=== PATIENT | female | born 1995 | race Caucasian/White ===

== ENCOUNTER 2019-01-17 10:49 | Emergency (ER) | payer MEDICAID ==
[2019-01-17] MEDS ORDERED: 0.9 % SODIUM CHLORIDE 1,000 ML BAG IV ONE (11:16)
--- NOTE | 2019-01-17 11:22 | Emergency Department Record ---
History of Present Illness - General Chief complaint: Cold Stated complaint: BLD PRESSURE/PREG 24W Time Seen by Provider: 01/17/19 11:07 Source: Patient Mode of Arrival: Ambulatory Limitations: No limitations - History of Present Illness Initial comments: pt c/o of sinus infxn that is not getting better. she has green rhinitis and cough. she feels shaky. pt is 24 wks preg. she has no leg pain MD complaint: Other Onset/Timin -: Week(s) Severity: Mild Consistency: Constant Improves with: Other medication Worsens with: Movement Associated Symptoms: Cough, Rhinorrhea - Related Data Home Medications Medication Instructions Recorded Confirmed Last Taken Promethazine HCl [Phenergan] 25 mg PO ASDIR 01/17/19 01/17/19 01/16/19 Previous Rx's Medication Instructions Recorded Amoxicillin 500 mg PO BID #14 capsule 01/17/19 Allergies Allergy/AdvReac Type Severity Reaction Status Date / Time Sulfa (Sulfonamide Allergy RASH Verified 01/17/19 10:58 Antibiotics) Travel Screening - Travel/Exposure Within Last 30 Days Have you traveled within the last 30 days?: No - Travel/Exposure Within Last Year Have you traveled outside the [place] in the last year?: No - Additonal Travel Details Have you been exposed to anyone with a communicable illness?: No - Travel Symptoms Symptom Screening: None Review of Systems Reviewed: No additional complaints except as noted below Constitutional: Reports: As per HPI. Denies: Chills, Fever, Malaise, Night sweats, Weakness, Weight change Eyes: Reports: As per HPI. Denies: Eye discharge, Eye pain, Photophobia, Vision change ENT: Reports: As per HPI. Denies: Congestion, Dental pain, Ear pain, Epistaxis , Hearing loss, Throat pain Respiratory: Reports: As per HPI. Denies: Cough, Dyspnea, Hemoptysis, Stridor, Wheezes Cardiovascular: Reports: As per HPI. Denies: Arrhythmia, Chest pain, Dyspnea on exertion, Edema, Murmurs, Orthopnea, Palpitations, Paroxysmal nocturnal dyspnea, Rheumatic Fever, Syncope Endocrine: Reports: As per HPI. Denies: Fatigue, Heat or cold intolerance, Polydipsia, Polyuria Gastrointestinal: Reports: As per HPI. Denies: Abdominal pain, Constipation, Diarrhea, Hematemesis, Hematochezia, Melena, Nausea, Vomiting Genitourinary: Reports: As per HPI. Denies: Abnormal menses, Discharge, Dyspareunia, Dysuria, Frequency, Hematuria, Incontinence, Retention, Urgency Musculoskeletal: Reports: As per HPI. Denies: Arthralgia, Back pain, Gout, Joint swelling, Myalgia, Neck pain Skin: Reports: As per HPI. Denies: Bruising, Change in color, Change in hair/ nails, Lesions, Pruritus, Rash Neurological: Reports: As per HPI. Denies: Abnormal gait, Confusion, Headache, Numbness, Paresthesias, Seizure, Tingling, Tremors, Vertigo, Weakness Psychiatric: Reports: As per HPI. Denies: Anxiety, Auditory hallucinations, Depression, Homicidal thoughts, Suicidal thoughts, Visual hallucinations Hematological/Lymphatic: Reports: As per HPI. Denies: Anemia, Blood Clots, Easy bleeding, Easy bruising, Swollen glands Past Medical History - SOCIAL HISTORY Smoking Status: Current every day smoker Alcohol Use: None Drug Use: None - RESPIRATORY Hx Respiratory Disorders: No - CARDIOVASCULAR Hx Cardio Disorders: No - NEURO Hx Neuro Disorders: No - GI Hx GI Disorders: No - Hx Genitourinary Disorders: No - ENDOCRINE Hx Endocrine Disorders: No - MUSCULOSKELETAL Hx Musculoskeletal Disorders: No - PSYCH Hx Psych Problems: No - HEMATOLOGY/ONCOLOGY Hx Hematology/Oncology Disorders: No Family Medical History Any Significant Family History?: Yes Family Hx Comment (NOT TO BE USED IN PLACE OF ITEMS BELOW): Mom has Lupus Physical Exam - General General Appearance: Alert, Oriented x3, Cooperative, No acute distress - Head Head exam: Normal inspection - Eye Eye exam: Normal appearance, PERRL, EOMI Pupils: Normal accommodation - ENT ENT exam: Normal exam, Mucous membranes moist, Normal external ear exam, Normal orophraynx, TM's normal bilaterally Ear exam: Normal external inspection. negative: External canal tenderness Nasal Exam: Normal inspection. negative: Discharge, Sinus tenderness Mouth exam: Normal external inspection, Tongue normal Teeth exam: Normal inspection. negative: Dental caries Throat exam: Normal inspection. negative: Tonsillar erythema, Tonsillar exudate - Neck Neck exam: Normal inspection, Full ROM. negative: Tenderness - Respiratory Respiratory exam: Normal lung sounds bilaterally. negative: Respiratory distress - Cardiovascular Cardiovascular Exam: Regular rate, Normal rhythm, Normal heart sounds - GI/Abdominal GI/Abdominal exam: Soft, Normal bowel sounds. negative: Tenderness - Rectal Rectal exam: Deferred - exam: Deferred - Extremities Extremities exam: Normal inspection, Full ROM, Normal capillary refill. negative: Tenderness - Back Back exam: Reports: Normal inspection, Full ROM. Denies: Muscle spasm, Rash noted, Tenderness - Neurological Neurological exam: Alert, CN II-XII intact, Normal gait, Oriented X3 - Psychiatric Psychiatric exam: Normal affect, Normal mood - Skin Skin exam: Dry, Intact, Normal color, Warm Course Vital Signs 01/17/19 10:59 Temperature 98 F Pulse Rate 75 Respiratory 16 Rate Blood Pressure 101/74 Pulse Ox 99 - Reevaluation(s) Reevaluation #1: 01/17/19 12:47 pt feels much better Medical Decision Making - Lab Data Result diagrams: 01/17/19 11:40 01/17/19 11:40 Disposition Disposition: Discharge Clinical Impression: Sinusitis Qualifiers: Sinusitis location: unspecified location Chronicity: acute Recurrence: non- recurrent Qualified Code(s): J01.90 - Acute sinusitis, unspecified Disposition: Home, Self-Care Condition: (1) Good Instructions: Sinusitis (ED) Additional Instructions: follow up with family doctor and ob. return sooner if worse. Prescriptions: Amoxicillin 500 mg PO BID #14 capsule Forms: Patient Portal Access Quality - Quality Measures Quality Measures: N/A - Blood Pressure Screening Does Patient Have Any of the Following: No Blood Pressure Classification: Normal BP Reading Systolic Measurement: 101 Diastolic Measurement: 74 Screening for High Blood Pressure: < Normal BP, F/U Not Required > [G8783]
[2019-01-17 11:55] LABS: HEMATOCRIT 37.9 % (35.0-47.0); HEMOGLOBIN 12.9 gm/dl (11.6-16.0); MEAN PLATELET VOLUME 9.5 fl (7.4-10.4); PLATELET COUNT 277 K/uL (130-400); RED BLOOD COUNT 4.03 M/uL (3.80-5.40); RED CELL DISTRIBUTION WIDTH 12.9 % (11.5-14.5); WHITE BLOOD COUNT W/O DIFF 12.9 K/uL (4.2-12.2)
[2019-01-17 12:12] LABS: URINE APPEARANCE CLEAR; URINE BILIRUBIN NEGATIVE (NEGATIVE); URINE BLOOD NEGATIVE (NEGATIVE); URINE COLOR YELLOW; URINE GLUCOSE (UA) NEGATIVE (NEGATIVE); URINE KETONE NEGATIVE (NEGATIVE); URINE LEUKOCYTE ESTERASE NEGATIVE (NEGATIVE); URINE NITRITE NEGATIVE (NEGATIVE); URINE PROTEIN NEGATIVE (NEGATIVE); URINE UROBILINOGEN 0.2 E.U./dL (0.20 - 1.00)
[2019-01-17 12:31] LABS: BLOOD UREA NITROGEN 7 mg/dL (6-20); CREATININE 0.4 mg/dL (0.5-0.9); EST GLOMERULAR FILTRATION RATE > 60 mL/min
[2019-01-17 12:32] LABS: TOTAL PROTEIN 7.3 g/dL (6.6-8.7)
[2019-01-17 12:34] LABS: GLUCOSE,RANDOM 80 mg/dL (74-109)
[2019-01-17 12:36] LABS: ALT/SGPT 11 U/L (<33); AST/SGOT 17 U/L (10.0-35.0)
[2019-01-17 12:37] LABS: ALB/GLOB RATIO 1.4 (1.1-1.8); ALBUMIN 4.2 g/dL (4.0-5.0); ALKALINE PHOSPHATASE 89 U/L (35-104)
== END 2019-01-17 13:18 | disposition home or self-care (01) ==
LOC: MERGE 10:49 → ER 10:49
DX: J01.90 Acute sinusitis, unspecified (principal); R05 Cough; F17.210 Nicotine dependence, cigarettes, uncomplicated; Z33.1 Pregnant state, incidental
CPT/HCPCS: 80053; 81003; 85027; 99283

== ENCOUNTER 2019-01-19 16:15 | Emergency (ER) | payer MEDICAID ==
--- NOTE | 2019-01-19 17:32 | Emergency Department Record ---
History of Present Illness - General Chief Complaint: Chest Pain Stated Complaint: CHEST PAIN Time Seen by Provider: 01/19/19 17:26 Source: Patient Mode of Arrival: Ambulatory Limitations: No limitations - History of Present Illness Initial Comments: 23 yo female presents to ED for evaluation of abdominal pain, loose stools, and left lower chest pain symptoms that began 4 days ago. Patient denies fevers, chills, or recent illness. Patient denies complications of her current , denies health problems at her baseline. Patient reports that her OB is Dr. Carr through [facility] MD Complaint: Chest pain, Other (Abdominal pain) Onset/Timin -: Days(s) Pain Location: Left chest Severity scale (1-10): 5 Quality: Dull Consistency: Intermittent Worsens With: Exertion - Related Data Previous Rx's Medication Instructions Recorded Amoxicillin 500 mg PO BID #14 capsule 01/17/19 Allergies Allergy/AdvReac Type Severity Reaction Status Date / Time Sulfa (Sulfonamide Allergy RASH Verified 01/19/19 16:57 Antibiotics) Travel Screening - Travel/Exposure Within Last 30 Days Have you traveled within the last 30 days?: No Review of Systems Constitutional: Denies: Chills, Fever, Malaise, Night sweats Eyes: Denies: Eye discharge, Eye pain ENT: Denies: Congestion, Ear pain, Epistaxis Respiratory: Denies: Cough, Dyspnea Cardiovascular: Reports: Chest pain. Denies: Dyspnea on exertion Endocrine: Denies: Fatigue, Heat or cold intolerance Gastrointestinal: Reports: Abdominal pain, Diarrhea. Denies: Nausea, Vomiting Genitourinary: Denies: Incontinence, Retention Musculoskeletal: Denies: Arthralgia, Back pain Skin: Denies: Bruising, Change in color Neurological: Reports: Vertigo. Denies: Abnormal gait, Confusion, Headache Psychiatric: Denies: Anxiety Hematological/Lymphatic: Denies: Anemia, Blood Clots Past Medical History - SOCIAL HISTORY Smoking Status: Current every day smoker Alcohol Use: None Drug Use: None - RESPIRATORY Hx Respiratory Disorders: No - CARDIOVASCULAR Hx Cardio Disorders: No - NEURO Hx Neuro Disorders: No - GI Hx GI Disorders: No - Hx Genitourinary Disorders: No - ENDOCRINE Hx Endocrine Disorders: No - MUSCULOSKELETAL Hx Musculoskeletal Disorders: No - PSYCH Hx Psych Problems: No - HEMATOLOGY/ONCOLOGY Hx Hematology/Oncology Disorders: No Family Medical History Any Significant Family History?: No Family Hx Comment (NOT TO BE USED IN PLACE OF ITEMS BELOW): Mom has Lupus Physical Exam - General General Appearance: Alert, Oriented x3, Cooperative, Mild distress Limitations: No limitations - Head Head exam: Atraumatic, Normocephalic, Normal inspection Head exam detail: negative: Abrasion, Contusion, Galloway's sign, General tenderness, Hematoma, Laceration - Eye Eye exam: Normal appearance. negative: Conjunctival injection, Periorbital swelling, Periorbital tenderness, Scleral icterus - ENT Ear exam: negative: Auricular hematoma, Auricular trauma Nasal Exam: negative: Active bleeding, Discharge, Dried blood, Sinus tenderness Mouth exam: negative: Drooling, Laceration, Tongue elevation - Neck Neck exam: Normal inspection. negative: Meningismus, Tenderness - Respiratory Respiratory exam: Normal lung sounds bilaterally. negative: Rhonchi, Wheezes - Cardiovascular Cardiovascular Exam: Regular rate, Normal rhythm, Normal heart sounds - GI/Abdominal GI/Abdominal exam: Soft. negative: Rebound, Rigid, Tenderness - Rectal Rectal exam: Deferred - exam: Deferred - Extremities Extremities exam: Normal inspection. negative: Pedal edema, Tenderness - Back Back exam: Denies: CVA tenderness (R), CVA tenderness (L) - Neurological Neurological exam: Alert, Normal gait, Oriented X3 - Psychiatric Psychiatric exam: Normal affect, Normal mood - Skin Skin exam: Normal color. negative: Abrasion Type of lesion: negative: abrasion Course Vital Signs 01/19/19 16:54 Temperature 97.9 F Pulse Rate 86 Respiratory 18 Rate Blood Pressure 106/71 Pulse Ox 98 - Reevaluation(s) Reevaluation #1: 01/19/19 17:30 EKG: NSR 77 Normal axis, normal intervals No acute ST-T wave changes are present. Reevaluation #2: 01/19/19 17:36 Case was discussed with Dr. Cuenca, will accept transfer at this time for OB/ US evaluation given her abdominal cramping symptoms. Disposition Disposition: Transfer Clinical Impression: Abdominal pain affecting Disposition: Home, Self-Care Transfer To: [facility] Reason For Transfer: US evaluation Accepting Physician: Joellen Time Discussed w/Accepting Physician: 17:37 Condition: (2) Stable Instructions: Abdominal Pain (ED) Forms: Patient Portal Access Time of Disposition: 17:37 Quality - Quality Measures Quality Measures: N/A, (14-50yr) - : US Determination Quality Measure: Measure #254: US Determination of Location ICD10 Codes Entered: Yes US Determination of Location: Trans-Abdominal or Trans-Vaginal US NOT Performed w/Reasons [G8807] Reason for No US: Documented Intrauterine - : Rhogam Quality Measure: Measure #255: Rhogam for Rh-Negative Women Rhogam for Rh-Negative Women at Risk: Rh-immunoglobulin NOT Ordered w/ Reason [H5410] Reason for not prescribing Rhogam: Other - Blood Pressure Screening Does Patient Have Any of the Following: No Blood Pressure Classification: Normal BP Reading Systolic Measurement: 106 Diastolic Measurement: 71 Screening for High Blood Pressure: < Normal BP, F/U Not Required > [G7583]
== END 2019-01-19 18:02 | disposition home or self-care (01) ==
LOC: ER 16:15 → MERGE 16:15 → ER 18:02
DX: O26.899 Other specified pregnancy related conditions, unspecified trimester (principal); O99.330 Smoking (tobacco) complicating pregnancy, unspecified trimester; R10.9 Unspecified abdominal pain; R07.9 Chest pain, unspecified; R11.0 Nausea; R19.7 Diarrhea, unspecified; R06.02 Shortness of breath; Z3A.00 Weeks of gestation of pregnancy not specified; F17.210 Nicotine dependence, cigarettes, uncomplicated
CPT/HCPCS: 93005; 93010; 99284

== ENCOUNTER 2019-01-24 15:31 | Emergency (ER) | payer MEDICAID ==
--- NOTE | 2019-01-24 15:59 | Emergency Department Record ---
History of Present Illness - General Chief complaint: Nausea, Vomiting, Diarrhea Stated complaint: VOMITING AND DIARRHEA Time Seen by Provider: 01/24/19 15:51 Source: Patient, Family Mode of Arrival: Ambulatory Limitations: No limitations - History of Present Illness Initial comments: 23 yo female presents at 24 weeks . She is concerned about her hydration status. She has nausea with vomiting the last few nights with some diarrhea. She is not having abdominal pain. No vaginal fluid leakage or bleeding. She is feeling the baby move. Her last diarrhea was during the night and her last emesis was this morning. No complications with her . This is her second . No vaginal discharge. 01/22/19 US preformed at [facility] [place]. SLIUP. HR 126. No previa. US dates 23w 1 day. complaint: Diarrhea, Nausea, Vomiting -: Days(s) Description of Vomiting: Watery Description of Diarrhea: Water Radiation: None Severity: Mild Quality: Other (No abdominal pain) Consistency: Intermittent Improves with: None Worsens with: Eating Context: Other Associated Symptoms: Cough - Related Data Home Medications Medication Instructions Recorded Confirmed Last Taken Albuterol Sulfate [Proair Hfa] 1 puff IH ASDIR 01/24/19 01/24/19 Unknown Azithromycin 250 mg PO DAILY 01/24/19 01/24/19 Unknown Allergies Allergy/AdvReac Type Severity Reaction Status Date / Time Sulfa (Sulfonamide Allergy RASH Verified 01/19/19 16:57 Antibiotics) Review of Systems Constitutional: Denies: Chills, Fever, Malaise, Weakness Eyes: Denies: Eye discharge ENT: Reports: Congestion. Denies: Ear pain, Throat pain Respiratory: Reports: Cough Cardiovascular: Denies: Chest pain, Palpitations, Syncope Endocrine: Denies: Fatigue Gastrointestinal: Reports: Diarrhea, Nausea, Vomiting. Denies: Abdominal pain, Constipation, Hematemesis, Hematochezia, Melena Genitourinary: Denies: Dysuria, Urgency Musculoskeletal: Denies: Arthralgia, Back pain, Myalgia Skin: Denies: Bruising, Change in color, Rash Neurological: Denies: Headache Psychiatric: Denies: Anxiety Hematological/Lymphatic: Denies: Easy bleeding, Easy bruising Past Medical History - SOCIAL HISTORY Smoking Status: Current every day smoker Drug Use: None - RESPIRATORY Hx Respiratory Disorders: No - CARDIOVASCULAR Hx Cardio Disorders: No - NEURO Hx Neuro Disorders: No - GI Hx GI Disorders: No - Hx Genitourinary Disorders: No - ENDOCRINE Hx Endocrine Disorders: No - MUSCULOSKELETAL Hx Musculoskeletal Disorders: No - PSYCH Hx Psych Problems: No - HEMATOLOGY/ONCOLOGY Hx Hematology/Oncology Disorders: No Family Medical History Family Hx Comment (NOT TO BE USED IN PLACE OF ITEMS BELOW): Mom has Lupus Physical Exam - General General Appearance: Alert, Oriented x3, Cooperative, No acute distress Limitations: No limitations - Head Head exam: Atraumatic, Normal inspection - Eye Eye exam: Normal appearance. negative: Conjunctival injection, Scleral icterus - ENT ENT exam: Normal exam Ear exam: Normal external inspection Nasal Exam: Normal inspection Mouth exam: Normal external inspection - Neck Neck exam: Normal inspection - Respiratory Respiratory exam: Normal lung sounds bilaterally. negative: Respiratory distress - Cardiovascular Cardiovascular Exam: Regular rate, Normal rhythm, Normal heart sounds - GI/Abdominal GI/Abdominal exam: Soft. negative: Distended, Guarding, Rebound, Rigid, Tenderness - Rectal Rectal exam: Deferred - exam: Deferred - Extremities Extremities exam: Normal inspection. negative: Tenderness - Back Back exam: Denies: CVA tenderness (R), CVA tenderness (L) - Neurological Neurological exam: Alert, Oriented X3 - Psychiatric Psychiatric exam: Normal affect, Normal mood - Skin Skin exam: Dry, Intact, Normal color, Warm Course - Reevaluation(s) Reevaluation #1: The patient is well appearing, no abdominal pain, no vaginal fluid leak, bleeding or discharge. She is feeling regular movement She is not acutely ill or vomiting She will be hydrated to address her concerns I did inform her at this stage in she has OB triage at [facility] as an option that is recommended to be seen as well. 01/24/19 16:10 01/24/19 16:32 The UA is negative for infection. Spec Bradley is normal. No protein. 01/24/19 17:00 Bedside US was used to identify the baby. HR 132. Vigorous movement. The patient is feeling better with IFV. Medical Decision Making - Lab Data Result diagrams: 01/24/19 16:10 01/24/19 16:10 Disposition Disposition: Discharge Clinical Impression: Vomiting and diarrhea, Dehydration Disposition: Home, Self-Care Condition: (1) Good Instructions: Acute Nausea and Vomiting (ED) Additional Instructions: Follow up with your doctor first of the week If you have any concerns with your , nausea or vomiting you may be seen at OB Triage at [facility] given this is your 24th week of Forms: Patient Portal Access Quality - Quality Measures Quality Measures: N/A - Blood Pressure Screening Does Patient Have Any of the Following: No Blood Pressure Classification: Normal BP Reading Systolic Measurement: 102 Diastolic Measurement: 69 Screening for High Blood Pressure: < Normal BP, F/U Not Required > [G8783]
[2019-01-24] MEDS ORDERED: 0.9 % SODIUM CHLORIDE 1,000 ML BAG IV ONE ×2 (16:04→16:59)
[2019-01-24 16:16] LABS: HEMOGLOBIN 11.8 gm/dl (11.6-16.0); MEAN CELL VOLUME 93.6 fl (81-97); MEAN CORPUSCULAR HGB CONC 33.7 g/dl (32-36); MEAN PLATELET VOLUME 9.1 fl (7.4-10.4); PLATELET COUNT 251 K/uL (130-400); RED BLOOD COUNT 3.74 M/uL (3.80-5.40); RED CELL DISTRIBUTION WIDTH 12.8 % (11.5-14.5); URINE APPEARANCE CLEAR; URINE BILIRUBIN NEGATIVE (NEGATIVE); URINE BLOOD NEGATIVE (NEGATIVE); URINE COLOR YELLOW; URINE GLUCOSE (UA) NEGATIVE (NEGATIVE); URINE KETONE NEGATIVE (NEGATIVE); URINE LEUKOCYTE ESTERASE NEGATIVE (NEGATIVE); URINE NITRITE NEGATIVE (NEGATIVE); URINE PROTEIN NEGATIVE (NEGATIVE); URINE UROBILINOGEN 0.2 E.U./dL (0.20 - 1.00); WHITE BLOOD COUNT W/O DIFF 14.4 K/uL (4.2-12.2)
[2019-01-24 16:20] LABS: MEAN CORPUSCULAR HEMOGLOBIN 31.5 pg (27-33)
[2019-01-24 16:25] LABS: PLATELET ESTIMATE NORMAL (NORMAL)
[2019-01-24 16:32] LABS: BLOOD UREA NITROGEN 7 mg/dL (6-20); CREATININE 0.4 mg/dL (0.5-0.9); EST GLOMERULAR FILTRATION RATE > 60 mL/min
[2019-01-24 16:33] LABS: TOTAL PROTEIN 6.6 g/dL (6.6-8.7)
[2019-01-24 16:35] LABS: GLUCOSE,RANDOM 111 mg/dL (74-109)
[2019-01-24 16:37] LABS: ALB/GLOB RATIO 1.4 (1.1-1.8); ALBUMIN 3.8 g/dL (4.0-5.0); ALT/SGPT 10 U/L (<33); AST/SGOT 14 U/L (10.0-35.0)
[2019-01-24 16:38] LABS: ALKALINE PHOSPHATASE 91 U/L (35-104)
[2019-01-24] MEDS ORDERED: POTASSIUM CHLORIDE 20 MEQ TABLET PO ONE (17:00)
== END 2019-01-24 18:02 | disposition home or self-care (01) ==
LOC: ER 15:31
DX: O26.892 Other specified pregnancy related conditions, second trimester (principal); O99.332 Smoking (tobacco) complicating pregnancy, second trimester; E86.0 Dehydration; R11.2 Nausea with vomiting, unspecified; R19.7 Diarrhea, unspecified; R05 Cough; F17.210 Nicotine dependence, cigarettes, uncomplicated; Z3A.23 23 weeks gestation of pregnancy
CPT/HCPCS: 80053; 81003; 85027; 96360; 96361; 99284; J7030

== ENCOUNTER 2019-02-03 10:47 | Emergency (ER) | payer MEDICAID ==
[2019-02-03] MEDS ORDERED: 0.9 % SODIUM CHLORIDE 1,000 ML BAG IV ONE (11:22)
[2019-02-03 11:40] LABS: HEMATOCRIT 33.4 % (35.0-47.0); HEMOGLOBIN 11.4 gm/dl (11.6-16.0); MEAN CELL VOLUME 91.8 fl (81-97); MEAN CORPUSCULAR HEMOGLOBIN 31.3 pg (27-33); MEAN CORPUSCULAR HGB CONC 34.1 g/dl (32-36); MEAN PLATELET VOLUME 8.8 fl (7.4-10.4); PLATELET COUNT 312 K/uL (130-400); RED BLOOD COUNT 3.64 M/uL (3.80-5.40); RED CELL DISTRIBUTION WIDTH 12.6 % (11.5-14.5); URINE APPEARANCE CLEAR; URINE BILIRUBIN NEGATIVE (NEGATIVE); URINE BLOOD NEGATIVE (NEGATIVE); URINE COLOR YELLOW; URINE GLUCOSE (UA) NEGATIVE (NEGATIVE); URINE KETONE NEGATIVE (NEGATIVE); URINE LEUKOCYTE ESTERASE NEGATIVE (NEGATIVE); URINE NITRITE NEGATIVE (NEGATIVE); URINE PROTEIN NEGATIVE (NEGATIVE); URINE UROBILINOGEN 0.2 E.U./dL (0.20 - 1.00); WHITE BLOOD COUNT W/O DIFF 12.6 K/uL (4.2-12.2)
[2019-02-03 11:54] LABS: BILIRUBIN,TOTAL < 0.20 mg/dL (0.2-1.0); BLOOD UREA NITROGEN 5 mg/dL (6-20); CREATININE 0.4 mg/dL (0.5-0.9); EST GLOMERULAR FILTRATION RATE > 60 mL/min
[2019-02-03 11:55] LABS: TOTAL PROTEIN 6.1 g/dL (6.6-8.7)
[2019-02-03 11:57] LABS: GLUCOSE,RANDOM 86 mg/dL (74-109)
[2019-02-03 11:59] LABS: ALT/SGPT 13 U/L (<33); AST/SGOT 16 U/L (10.0-35.0)
[2019-02-03 12:00] LABS: ALB/GLOB RATIO 1.5 (1.1-1.8); ALBUMIN 3.7 g/dL (4.0-5.0); ALKALINE PHOSPHATASE 88 U/L (35-104)
--- NOTE | 2019-02-03 12:46 | Emergency Department Record ---
History of Present Illness - General Chief complaint: Nausea, Vomiting, Diarrhea Stated complaint: DEHYDRATION Time Seen by Provider: 02/03/19 11:07 Source: Patient Mode of Arrival: Ambulatory Limitations: No limitations - History of Present Illness Initial comments: pt is here she states for dehydration. she has had bronchitis and is taking zithromax and has had a lot of diarrhea. she is 25wks . she is having no cramping , no ap. she feels movement MD complaint: Diarrhea, Nausea, Vomiting Onset/Timin -: Days(s) Severity scale (1-10): 3 Quality: Aching Associated Symptoms: Nausea/vomiting - Related Data Home Medications Medication Instructions Recorded Confirmed Last Taken No122/Iron/Folic Acid 1 each PO DAILY 02/03/19 02/03/19 1 Day Ago [ Multi Tablet] ~02/02/19 Allergies Allergy/AdvReac Type Severity Reaction Status Date / Time Sulfa (Sulfonamide Allergy RASH Verified 02/03/19 11:04 Antibiotics) cefuroxime AdvReac VOMITING Verified 02/03/19 11:06 Travel Screening - Travel/Exposure Within Last 30 Days Have you traveled within the last 30 days?: No - Travel/Exposure Within Last Year Have you traveled outside the [place] in the last year?: No - Additonal Travel Details Have you been exposed to anyone with a communicable illness?: No - Travel Symptoms Symptom Screening: None Review of Systems Reviewed: No additional complaints except as noted below Constitutional: Reports: As per HPI. Denies: Chills, Fever, Malaise, Night sweats, Weakness, Weight change Eyes: Reports: As per HPI. Denies: Eye discharge, Eye pain, Photophobia, Vision change ENT: Reports: As per HPI. Denies: Congestion, Dental pain, Ear pain, Epistaxis , Hearing loss, Throat pain Respiratory: Reports: As per HPI. Denies: Cough, Dyspnea, Hemoptysis, Stridor, Wheezes Cardiovascular: Reports: As per HPI. Denies: Arrhythmia, Chest pain, Dyspnea on exertion, Edema, Murmurs, Orthopnea, Palpitations, Paroxysmal nocturnal dyspnea, Rheumatic Fever, Syncope Endocrine: Reports: As per HPI. Denies: Fatigue, Heat or cold intolerance, Polydipsia, Polyuria Gastrointestinal: Reports: As per HPI, Diarrhea, Nausea, Vomiting. Denies: Abdominal pain, Constipation, Hematemesis, Hematochezia, Melena Genitourinary: Reports: As per HPI. Denies: Abnormal menses, Discharge, Dyspareunia, Dysuria, Frequency, Hematuria, Incontinence, Retention, Urgency Musculoskeletal: Reports: As per HPI. Denies: Arthralgia, Back pain, Gout, Joint swelling, Myalgia, Neck pain Skin: Reports: As per HPI. Denies: Bruising, Change in color, Change in hair/ nails, Lesions, Pruritus, Rash Neurological: Reports: As per HPI. Denies: Abnormal gait, Confusion, Headache, Numbness, Paresthesias, Seizure, Tingling, Tremors, Vertigo, Weakness Psychiatric: Reports: As per HPI. Denies: Anxiety, Auditory hallucinations, Depression, Homicidal thoughts, Suicidal thoughts, Visual hallucinations Hematological/Lymphatic: Reports: As per HPI. Denies: Anemia, Blood Clots, Easy bleeding, Easy bruising, Swollen glands Past Medical History - SOCIAL HISTORY Smoking Status: Light tobacco smoker (<10/day) Alcohol Use: None Drug Use: None - RESPIRATORY Hx Respiratory Disorders: No - CARDIOVASCULAR Hx Cardio Disorders: No - NEURO Hx Neuro Disorders: No - GI Hx GI Disorders: No - Hx Genitourinary Disorders: No - ENDOCRINE Hx Endocrine Disorders: No - MUSCULOSKELETAL Hx Musculoskeletal Disorders: No - PSYCH Hx Psych Problems: No - HEMATOLOGY/ONCOLOGY Hx Hematology/Oncology Disorders: No Family Medical History Any Significant Family History?: Yes Family Hx Comment (NOT TO BE USED IN PLACE OF ITEMS BELOW): Mom has Lupus Physical Exam - General General Appearance: Alert, Oriented x3, Cooperative, Mild distress - Head Head exam: Normal inspection - Eye Eye exam: Normal appearance, PERRL, EOMI Pupils: Normal accommodation - ENT ENT exam: Normal exam, Mucous membranes dry, Normal external ear exam, Normal orophraynx Ear exam: Normal external inspection. negative: External canal tenderness Nasal Exam: Normal inspection. negative: Discharge, Sinus tenderness Mouth exam: Normal external inspection, Tongue normal Teeth exam: Normal inspection. negative: Dental caries Throat exam: Normal inspection. negative: Tonsillar erythema, Tonsillar exudate - Neck Neck exam: Normal inspection, Full ROM. negative: Tenderness - Respiratory Respiratory exam: Normal lung sounds bilaterally. negative: Respiratory distress - Cardiovascular Cardiovascular Exam: Regular rate, Normal rhythm, Normal heart sounds - GI/Abdominal GI/Abdominal exam: Soft, Normal bowel sounds. negative: Tenderness - Rectal Rectal exam: Deferred - exam: Deferred - Extremities Extremities exam: Normal inspection, Full ROM, Normal capillary refill. negative: Tenderness - Back Back exam: Reports: Normal inspection, Full ROM. Denies: Muscle spasm, Rash noted, Tenderness - Neurological Neurological exam: Alert, CN II-XII intact, Normal gait, Oriented X3 - Psychiatric Psychiatric exam: Normal affect, Normal mood - Skin Skin exam: Dry, Intact, Normal color, Rash, Warm Distribution of rash: Face, LUE Course Vital Signs 02/03/19 02/03/19 10:50 12:28 Temperature 98.2 F Pulse Rate 81 Pulse Rate [ 88 Pulse Ox Probe] Respiratory 18 16 Rate Blood Pressure 106/70 Blood Pressure 102/68 [Left Arm] Pulse Ox 100 99 - Reevaluation(s) Reevaluation #1: 02/03/19 12:44 pt feels better Medical Decision Making - Lab Data Result diagrams: 02/03/19 11:35 02/03/19 11:35 Lab Results 02/03/19 02/03/19 02/03/19 Range/Units 11:35 11:35 11:35 WBC 12.6 H (4.2-12.2) K/uL Corrected WBC RBC 3.64 L (3.80-5.40) M/uL Hgb 11.4 L (11.6-16.0) gm/dl Hct 33.4 L (35.0-47.0) % MCV 91.8 (81-97) fl MCH 31.3 (27-33) pg MCHC 34.1 (32-36) g/dl RDW 12.6 (11.5-14.5) % Plt Count 312 (130-400) K/uL MPV 8.8 (7.4-10.4) fl Gran % Neutrophils % 72.0 (47-80) % Band Neutrophils % Lymphocytes % Monocytes % Eosinophils % Not Reportable Basophils % Not Reportable Lymphocytes 23.0 (16-45) % Monocytes 5.0 (0-9) % Basophils Metamyelocytes Myelocytes Promyelocytes Nucleated RBCs Differential Comment Hypersegmented Polys Plasma Cells Other Cell Type Toxic Granulation Dohle Bodies Rm Rods Platelet Estimate RBC Morphology Polychromasia Hypochromasia Poikilocytosis Basophilic Stippling Anisocytosis Microcytosis Macrocytosis Spherocytes Sickle Cells Target Cells Tear Drop Cells Ovalocytes Stomatocytes Helmet Cells Humphreys-Sunbrook Bodies Connelly Rings Octavio Cells Acanthocytes (Spur) Rouleaux Schistocytes Morphology Comment Eosinophil Count Sodium 137 (136-145) mmol/L Potassium 3.7 (3.4-4.5) mmol/L Chloride 105 (98-107) mmol/L Carbon Dioxide 21.0 L (22-29) mmol/L Anion Gap 11.0 (7-16) BUN 5 L (6-20) mg/dL Creatinine 0.4 L (0.5-0.9) mg/dL Estimated GFR > 60 mL/min Random Glucose 86 (74-109) mg/dL Calcium 8.7 (8.6-10.0) mg/dL Total Bilirubin < 0.20 L (0.2-1.0) mg/dL AST 16 (10.0-35.0) U/L ALT 13 (<33) U/L Alkaline Phosphatase 88 (35-104) U/L Total Protein 6.1 L (6.6-8.7) g/dL Albumin 3.7 L (4.0-5.0) g/dL Globulin 2.4 (1.4-4.8) gm/dL Albumin/Globulin Ratio 1.5 (1.1-1.8) Urine Color Yellow Urine Appearance Clear Urine pH 8.0 (5.0-8.0) Ur Specific Le[place]rett 1.015 (1.002-1.030) Urine Protein Negative (NEGATIVE) Urine Glucose (UA) Negative (NEGATIVE) Urine Ketones Negative (NEGATIVE) Urine Blood Negative (NEGATIVE) Urine Nitrite Negative (NEGATIVE) Urine Bilirubin Negative (NEGATIVE) Urine Urobilinogen 0.2 (0.20 - 1.00) E.U./dL Ur Leukocyte Esterase Negative (NEGATIVE) 02/03/19 Range/Units 11:35 WBC Cancelled (4.2-12.2) K/uL Corrected WBC Cancelled RBC Cancelled (3.80-5.40) M/uL Hgb Cancelled (11.6-16.0) gm/dl Hct Cancelled (35.0-47.0) % MCV Cancelled (81-97) fl MCH Cancelled (27-33) pg MCHC Cancelled (32-36) g/dl RDW Cancelled (11.5-14.5) % Plt Count Cancelled (130-400) K/uL MPV Cancelled (7.4-10.4) fl Gran % Cancelled Neutrophils % Cancelled (47-80) % Band Neutrophils % Cancelled Lymphocytes % Cancelled Monocytes % Cancelled Eosinophils % Cancelled Basophils % Cancelled Lymphocytes Cancelled (16-45) % Monocytes Cancelled (0-9) % Basophils Cancelled Metamyelocytes Cancelled Myelocytes Cancelled Promyelocytes Cancelled Nucleated RBCs Cancelled Differential Comment Cancelled Hypersegmented Polys Cancelled Plasma Cells Cancelled Other Cell Type Cancelled Toxic Granulation Cancelled Dohle Bodies Cancelled Rm Rods Cancelled Platelet Estimate Cancelled RBC Morphology Cancelled Polychromasia Cancelled Hypochromasia Cancelled Poikilocytosis Cancelled Basophilic Stippling Cancelled Anisocytosis Cancelled Microcytosis Cancelled Macrocytosis Cancelled Spherocytes Cancelled Sickle Cells Cancelled Target Cells Cancelled Tear Drop Cells Cancelled Ovalocytes Cancelled Stomatocytes Cancelled Helmet Cells Cancelled Humphreys-Sunbrook Bodies Cancelled Connelly Rings Cancelled Juliette Cells Cancelled Acanthocytes (Spur) Cancelled Rouleaux Cancelled Schistocytes Cancelled Morphology Comment Cancelled Eosinophil Count Cancelled Sodium (136-145) mmol/L Potassium (3.4-4.5) mmol/L Chloride (98-107) mmol/L Carbon Dioxide (22-29) mmol/L Anion Gap (7-16) BUN (6-20) mg/dL Creatinine (0.5-0.9) mg/dL Estimated GFR mL/min Random Glucose (74-109) mg/dL Calcium (8.6-10.0) mg/dL Total Bilirubin (0.2-1.0) mg/dL AST (10.0-35.0) U/L ALT (<33) U/L Alkaline Phosphatase (35-104) U/L Total Protein (6.6-8.7) g/dL Albumin (4.0-5.0) g/dL Globulin (1.4-4.8) gm/dL Albumin/Globulin Ratio (1.1-1.8) Urine Color Urine Appearance Urine pH (5.0-8.0) Ur Specific Le[place]rett (1.002-1.030) Urine Protein (NEGATIVE) Urine Glucose (UA) (NEGATIVE) Urine Ketones (NEGATIVE) Urine Blood (NEGATIVE) Urine Nitrite (NEGATIVE) Urine Bilirubin (NEGATIVE) Urine Urobilinogen (0.20 - 1.00) E.U./dL Ur Leukocyte Esterase (NEGATIVE) Disposition Disposition: Discharge Clinical Impression: Dehydration Diarrhea Qualifiers: Diarrhea type: unspecified type Qualified Code(s): R19.7 - Diarrhea, unspecified Disposition: Home, Self-Care Condition: (1) Good Instructions: Dehydration (ED), Acute Diarrhea (ED) Additional Instructions: follow up with senior java j2ee developer. return sooner if worse. push fluids Quality - Quality Measures Quality Measures: N/A - Blood Pressure Screening Does Patient Have Any of the Following: No Blood Pressure Classification: Normal BP Reading Systolic Measurement: 106 Diastolic Measurement: 70 Screening for High Blood Pressure: < Normal BP, F/U Not Required > [G8783]
== END 2019-02-03 13:03 | disposition home or self-care (01) ==
LOC: ER 10:47
DX: E86.0 Dehydration (principal); R11.2 Nausea with vomiting, unspecified; R19.7 Diarrhea, unspecified; F17.210 Nicotine dependence, cigarettes, uncomplicated
CPT/HCPCS: 80053; 81003; 85027; 96360; 99284; J7030

== ENCOUNTER 2019-04-06 10:11 | Emergency (ER) | payer MEDICAID ==
[2019-04-06] MEDS ORDERED: 0.9 % SODIUM CHLORIDE 1,000 ML BAG IV ONE (10:39)
[2019-04-06 10:58] LABS: ABSOLUTE NEUTROPHIL COUNT 11.62; HEMATOCRIT 37.4 % (35.0-47.0); HEMOGLOBIN 12.4 gm/dl (11.6-16.0); MEAN CELL VOLUME 94.2 fl (81-97); MEAN CORPUSCULAR HEMOGLOBIN 31.2 pg (27-33); MEAN CORPUSCULAR HGB CONC 33.2 g/dl (32-36); MEAN PLATELET VOLUME 9.6 fl (7.4-10.4); PLATELET COUNT 234 K/uL (130-400); RED BLOOD COUNT 3.97 M/uL (3.80-5.40); RED CELL DISTRIBUTION WIDTH 12.8 % (11.5-14.5); WHITE BLOOD COUNT W/O DIFF 15.1 K/uL (4.2-12.2)
[2019-04-06 11:00] LABS: URINE APPEARANCE CLEAR; URINE BILIRUBIN NEGATIVE (NEGATIVE); URINE BLOOD NEGATIVE (NEGATIVE); URINE COLOR YELLOW; URINE GLUCOSE (UA) NEGATIVE (NEGATIVE); URINE KETONE NEGATIVE (NEGATIVE); URINE LEUKOCYTE ESTERASE MODERATE (NEGATIVE); URINE NITRITE NEGATIVE (NEGATIVE); URINE PROTEIN NEGATIVE (NEGATIVE); URINE UROBILINOGEN 0.2 E.U./dL (0.20 - 1.00)
[2019-04-06 11:15] LABS: BLOOD UREA NITROGEN 7 mg/dL (6-20); CREATININE 0.5 mg/dL (0.5-0.9); EST GLOMERULAR FILTRATION RATE > 60 mL/min
[2019-04-06 11:17] LABS: URINE BACTERIA 4+; URINE RBC 0 - 2 (NONE SEEN)
[2019-04-06 11:18] LABS: GLUCOSE,RANDOM 80 mg/dL (74-109)
[2019-04-06 12:11] LABS: THYROID STIMULATING HORMONE 1.24 uIU/mL (0.270-4.20)
--- NOTE | 2019-04-06 13:19 | Emergency Department Record ---
History of Present Illness - General Chief complaint: ENT Stated complaint: SWOLLEN THROAT, DEHYDRATED Time Seen by Provider: 04/06/19 10:27 Source: Patient Mode of Arrival: Ambulatory Limitations: No limitations - History of Present Illness Initial comments: pt feels dizzy and like she is dehydrated. she is 37 weeks and was vomiting last pm. she also had palpitations in the night and had a reported hr of 150. MD complaint: Other Onset/Timin -: Days(s) Location: Throat Severity scale (1-10): 6 Quality: Burning Consistency: Constant Improves with: None Worsens with: None Associated Symptoms: Sore throat - Related Data Previous Rx's Medication Instructions Recorded Nitrofurantoin Macrocrystal 100 mg PO BID #14 capsule 04/06/19 [Nitrofurantoin] Allergies Allergy/AdvReac Type Severity Reaction Status Date / Time Sulfa (Sulfonamide Allergy RASH Verified 02/03/19 11:04 Antibiotics) cefuroxime AdvReac VOMITING Verified 02/03/19 11:06 Travel Screening - Travel/Exposure Within Last 30 Days Have you traveled within the last 30 days?: No Review of Systems Reviewed: No additional complaints except as noted below Constitutional: Reports: As per HPI. Denies: Chills, Fever, Malaise, Night sweats, Weakness, Weight change Eyes: Reports: As per HPI. Denies: Eye discharge, Eye pain, Photophobia, Vision change ENT: Reports: As per HPI. Denies: Congestion, Dental pain, Ear pain, Epistaxis, Hearing loss, Throat pain Respiratory: Reports: As per HPI. Denies: Cough, Dyspnea, Hemoptysis, Stridor, Wheezes Cardiovascular: Reports: As per HPI, Palpitations. Denies: Arrhythmia, Chest pain, Dyspnea on exertion, Edema, Murmurs, Orthopnea, Paroxysmal nocturnal dyspnea, Rheumatic Fever, Syncope Endocrine: Reports: As per HPI. Denies: Fatigue, Heat or cold intolerance, Polydipsia, Polyuria Gastrointestinal: Reports: As per HPI. Denies: Abdominal pain, Constipation, Diarrhea, Hematemesis, Hematochezia, Melena, Nausea, Vomiting Genitourinary: Reports: As per HPI. Denies: Abnormal menses, Discharge, Dyspareunia, Dysuria, Frequency, Hematuria, Incontinence, Retention, Urgency Musculoskeletal: Reports: As per HPI. Denies: Arthralgia, Back pain, Gout, Luana nt swelling, Myalgia, Neck pain Skin: Reports: As per HPI. Denies: Bruising, Change in color, Change in hair/nails, Lesions, Pruritus, Rash Neurological: Reports: As per HPI. Denies: Abnormal gait, Confusion, Headache, Numbness, Paresthesias, Seizure, Tingling, Tremors, Vertigo, Weakness Psychiatric: Reports: As per HPI. Denies: Anxiety, Auditory hallucinations, Depression, Homicidal thoughts, Suicidal thoughts, Visual hallucinations Hematological/Lymphatic: Reports: As per HPI. Denies: Anemia, Blood Clots, Easy bleeding, Easy bruising, Swollen glands Past Medical History - SOCIAL HISTORY Smoking Status: Light tobacco smoker (<10/day) - RESPIRATORY Hx Respiratory Disorders: No - CARDIOVASCULAR Hx Cardio Disorders: No - NEURO Hx Neuro Disorders: No - GI Hx GI Disorders: No - Hx Genitourinary Disorders: No - ENDOCRINE Hx Endocrine Disorders: No - MUSCULOSKELETAL Hx Musculoskeletal Disorders: No - PSYCH Hx Psych Problems: No - HEMATOLOGY/ONCOLOGY Hx Hematology/Oncology Disorders: No Family Medical History Any Significant Family History?: Yes Family Hx Comment (NOT TO BE USED IN PLACE OF ITEMS BELOW): Mom has Lupus Physical Exam - General General Appearance: Alert, Oriented x3, Cooperative, No acute distress - Head Head exam: Normal inspection - Eye Eye exam: Normal appearance, PERRL, EOMI Pupils: Normal accommodation - ENT ENT exam: Normal exam, Mucous membranes moist, Normal external ear exam, Normal orophraynx Ear exam: Normal external inspection. negative: External canal tenderness Nasal Exam: Normal inspection. negative: Discharge, Sinus tenderness Mouth exam: Normal external inspection, Tongue normal Teeth exam: Normal inspection. negative: Dental caries Throat exam: Normal inspection. negative: Tonsillar erythema, Tonsillar exudate - Neck Neck exam: Normal inspection, Full ROM. negative: Tenderness - Respiratory Respiratory exam: Normal lung sounds bilaterally. negative: Respiratory distress - Cardiovascular Cardiovascular Exam: Normal rhythm, Normal heart sounds, Tachycardia - GI/Abdominal GI/Abdominal exam: Soft, Normal bowel sounds, Other (gravid). negative: Tenderness - Rectal Rectal exam: Deferred - exam: Deferred - Extremities Extremities exam: Normal inspection, Full ROM, Normal capillary refill. negative: Tenderness - Back Back exam: Reports: Normal inspection, Full ROM. Denies: Muscle spasm, Rash n oted, Tenderness - Neurological Neurological exam: Alert, Normal gait, Oriented X3, Reflexes normal - Psychiatric Psychiatric exam: Normal affect, Normal mood - Skin Skin exam: Dry, Intact, Normal color, Warm Course Vital Signs 04/06/19 04/06/19 04/06/19 10:14 12:04 12:59 Temperature 97.6 F Pulse Rate 106 H Pulse Rate [ 18 L 73 Left] Respiratory 18 18 18 Rate Blood Pressure 107/67 Blood Pressure 93/62 105/62 [Left Arm] Pulse Ox 100 100 98 - Reevaluation(s) Reevaluation #1: 04/06/19 13:16 pt was monitored during stay. no arrythmias seen. pt feels much better. pt hooked up to halter monitor Medical Decision Making - Lab Data Result diagrams: 04/06/19 10:55 04/06/19 10:55 Lab Results 04/06/19 04/06/19 04/06/19 Range/Units 10:30 10:55 10:55 WBC 15.1 H (4.2-12.2) K/uL RBC 3.97 (3.80-5.40) M/uL Hgb 12.4 (11.6-16.0) gm/dl Hct 37.4 (35.0-47.0) % MCV 94.2 (81-97) fl MCH 31.2 (27-33) pg MCHC 33.2 (32-36) g/dl RDW 12.8 (11.5-14.5) % Plt Count 234 (130-400) K/uL MPV 9.6 (7.4-10.4) fl Neutrophils % 78.0 (47-80) % Eosinophils % Not Reportable Basophils % Not Reportable Absolute Neutrophils 11.62 Lymphocytes 14.0 L (16-45) % Monocytes 7.0 (0-9) % Eosinophil Count 1.0 (0-6) % Sodium (136-145) mmol/L Potassium (3.4-4.5) mmol/L Chloride (98-107) mmol/L Carbon Dioxide (22-29) mmol/L Anion Gap (7-16) BUN (6-20) mg/dL Creatinine (0.5-0.9) mg/dL Estimated GFR mL/min Random Glucose (74-109) mg/dL Calcium (8.6-10.0) mg/dL Magnesium (1.6-2.6) mg/dL TSH (0.270-4.20) uIU/mL Urine Color Yellow Urine Appearance Clear Urine pH 7.5 (5.0-8.0) Ur Specific Josephine <= 1.005 (1.002-1.030) Urine Protein Negative (NEGATIVE) Urine Glucose (UA) Negative (NEGATIVE) Urine Ketones Negative (NEGATIVE) Urine Blood Negative (NEGATIVE) Urine Nitrite Negative (NEGATIVE) Urine Bilirubin Negative (NEGATIVE) Urine Urobilinogen 0.2 (0.20 - 1.00) E.U./dL Ur Leukocyte Esterase Moderate H (NEGATIVE) Urine RBC 0 - 2 (NONE SEEN) Urine WBC 3 - 5 (0-2/hpf) U Non-Squamous Epi Cells 3 - 6 /hpf Urine Bacteria 4+ Group A Strep Screen Negative (NEGATIVE) 04/06/19 04/06/19 Range/Units 10:55 10:55 WBC (4.2-12.2) K/uL RBC (3.80-5.40) M/uL Hgb (11.6-16.0) gm/dl Hct (35.0-47.0) % MCV (81-97) fl MCH (27-33) pg MCHC (32-36) g/dl RDW (11.5-14.5) % Plt Count (130-400) K/uL MPV (7.4-10.4) fl Neutrophils % (47-80) % Eosinophils % Basophils % Absolute Neutrophils Lymphocytes (16-45) % Monocytes (0-9) % Eosinophil Count (0-6) % Sodium 136 (136-145) mmol/L Potassium 3.9 (3.4-4.5) mmol/L Chloride 102 (98-107) mmol/L Carbon Dioxide 23.0 (22-29) mmol/L Anion Gap 11.0 (7-16) BUN 7 (6-20) mg/dL Creatinine 0.5 (0.5-0.9) mg/dL Estimated GFR > 60 mL/min Random Glucose 80 (74-109) mg/dL Calcium 9.2 (8.6-10.0) mg/dL Magnesium 1.6 (1.6-2.6) mg/dL TSH 1.24 (0.270-4.20) uIU/mL Urine Color Urine Appearance Urine pH (5.0-8.0) Ur Specific Josephine (1.002-1.030) Urine Protein (NEGATIVE) Urine Glucose (UA) (NEGATIVE) Urine Ketones (NEGATIVE) Urine Blood (NEGATIVE) Urine Nitrite (NEGATIVE) Urine Bilirubin (NEGATIVE) Urine Urobilinogen (0.20 - 1.00) E.U./dL Ur Leukocyte Esterase (NEGATIVE) Urine RBC (NONE SEEN) Urine WBC (0-2/hpf) U Non-Squamous Epi Cells /hpf Urine Bacteria Group A Strep Screen (NEGATIVE) Disposition Disposition: Discharge Clinical Impression: Palpitations UTI (urinary tract infection) Qualifiers: Urinary tract infection type: acute cystitis Hematuria presence: without hematu fabiola Qualified Code(s): N30.00 - Acute cystitis without hematuria Disposition: Home, Self-Care Condition: (1) Good Instructions: Heart Palpitations (ED), Urinary Tract Infection in (ED) Additional Instructions: follow up with ob and family doctor. return sooner if worse. return in 48hrs to have holter monitor removed Prescriptions: Nitrofurantoin Macrocrystal [Nitrofurantoin] 100 mg PO BID #14 capsule Quality - Quality Measures Quality Measures: (14-50yr) - : US Determination Quality Measure: Measure #254: US Determination of Location ICD10 Codes Entered: Yes US Determination of Location: Trans-Abdominal or Trans-Vaginal US NOT Performed [G8808] Reason for No US: Documented Intrauterine - : Rhogam Rhogam for Rh-Negative Women at Risk: Rh-immunoglobulin NOT Ordered w/Reason [G8810] Reason for not prescribing Rhogam: Other - Blood Pressure Screening Does Patient Have Any of the Following: No Blood Pressure Classification: Normal BP Reading Systolic Measurement: 107 Diastolic Measurement: 67 Screening for High Blood Pressure: < Normal BP, F/U Not Required > [G8783]
== END 2019-04-06 13:44 | disposition home or self-care (01) ==
LOC: ER 10:11
DX: O23.13 Infections of bladder in pregnancy, third trimester (principal); N30.00 Acute cystitis without hematuria; O99.333 Smoking (tobacco) complicating pregnancy, third trimester; O99.413 Diseases of the circulatory system complicating pregnancy, third trimester; R00.2 Palpitations; F17.210 Nicotine dependence, cigarettes, uncomplicated; Z3A.37 37 weeks gestation of pregnancy
CPT/HCPCS: 80048; 81001; 83735; 84443; 85027; 87880; 93005; 93010; 93225; 93226; 96360; 99284; J7030

== ENCOUNTER 2019-09-07 03:50 | Emergency (ER) | payer MEDICAID ==
--- NOTE | 2019-09-07 04:14 | Emergency Department Record ---
History of Present Illness - General Chief complaint: Dehydration Stated complaint: DEHYDRATED Time Seen by Provider: 09/07/19 04:05 Source: Patient Mode of Arrival: Ambulatory Limitations: No limitations - History of Present Illness Initial comments: 23 yo female presents to ED for evaluation of possible dehydration. Patient reports that she awoke two hours ago with palpitations, reports loose stools for the past 3 days and that she is has been drinking a lot of water. Patient denies nausea/vomiting, denies health problems at her baseline other than intermittent nausea that she takes phenergan for daily. Patient denies fevers, chills, or recent illness. Patient does report that her palpitations have resolved at this time. Patient also reports that she was drinking alcohol earlier in the evening and took her phenergan for her chronic symptoms, believes her symptoms may have been the result of this interaction. Onset/Timin -: Days(s) Severity scale (1-10): 7 Quality: Other Consistency: Intermittent Improves with: Rest Worsens with: None Associated Symptoms: Denies other symptoms - Pam Coma Scale Eye Response: (4) Open spontaneously Motor Response: (6) Obeys commands Verbal Response: (5) Oriented [place] Total: 15 - Related Data Home Medications Medication Instructions Recorded Confirmed Last Taken Promethazine HCl [Phenergan] 1 tab PO DAILY 09/07/19 09/07/19 09/07/19 Allergies Allergy/AdvReac Type Severity Reaction Status Date / Time Sulfa (Sulfonamide Allergy RASH Verified 02/03/19 11:04 Antibiotics) cefuroxime AdvReac VOMITING Verified 02/03/19 11:06 Travel Screening - Travel/Exposure Within Last 30 Days Have you traveled within the last 30 days?: No - Travel/Exposure Within Last Year Have you traveled outside the [place] in the last year?: No - Additonal Travel Details Have you been exposed to anyone with a communicable illness?: No - Travel Symptoms Symptom Screening: None Review of Systems Constitutional: Denies: Chills, Fever, Malaise, Night sweats Eyes: Denies: Eye discharge, Eye pain ENT: Denies: Congestion, Ear pain, Epistaxis Respiratory: Denies: Cough, Dyspnea Cardiovascular: Reports: Palpitations. Denies: Chest pain, Dyspnea on exertion Endocrine: Denies: Fatigue, Heat or cold intolerance Gastrointestinal: Reports: Diarrhea. Denies: Abdominal pain, Nausea, Vomiting Genitourinary: Denies: Incontinence, Retention Musculoskeletal: Denies: Arthralgia, Back pain Skin: Denies: Bruising, Change in color Neurological: Denies: Abnormal gait, Confusion, Headache, Seizure Psychiatric: Denies: Anxiety Hematological/Lymphatic: Denies: Anemia, Blood Clots Past Medical History - SOCIAL HISTORY Smoking Status: Light tobacco smoker (<10/day) Alcohol Use: Rare Drug Use: None - RESPIRATORY Hx Respiratory Disorders: Yes Hx Bronchitis: Yes - CARDIOVASCULAR Hx Cardio Disorders: No - NEURO Hx Neuro Disorders: No - GI Hx GI Disorders: No - Hx Genitourinary Disorders: Yes Hx UTI: Yes - ENDOCRINE Hx Endocrine Disorders: No - MUSCULOSKELETAL Hx Musculoskeletal Disorders: No - PSYCH Hx Psych Problems: Yes Hx Anxiety: Yes Hx Depression: Yes - HEMATOLOGY/ONCOLOGY Hx Hematology/Oncology Disorders: No Family Medical History Any Significant Family History?: Yes Family Hx Comment (NOT TO BE USED IN PLACE OF ITEMS BELOW): Mom has Lupus Physical Exam - General General Appearance: Alert, Oriented x3, Cooperative, No acute distress, Anxious Limitations: No limitations - Head Head exam: Atraumatic, Normocephalic, Normal inspection Head exam detail: negative: Abrasion, Contusion, Galloway's sign, General tenderness, Hematoma, Laceration - Eye Eye exam: Normal appearance. negative: Conjunctival injection, Periorbital swelling, Periorbital tenderness, Scleral icterus - ENT Ear exam: negative: Auricular hematoma, Auricular trauma Nasal Exam: negative: Active bleeding, Discharge, Dried blood, Foreign body Mouth exam: negative: Drooling, Laceration, Muffled voice, Tongue elevation - Neck Neck exam: Normal inspection. negative: Meningismus, Tenderness - Respiratory Respiratory exam: Normal lung sounds bilaterally. negative: Rales, Respiratory distress, Rhonchi, Stridor - Cardiovascular Cardiovascular Exam: Regular rate, Normal rhythm, Normal heart sounds - GI/Abdominal GI/Abdominal exam: Soft. negative: Rebound, Rigid, Tenderness - Rectal Rectal exam: Deferred - exam: Deferred - Extremities Extremities exam: Normal inspection. negative: Pedal edema, Tenderness - Back Back exam: Denies: CVA tenderness (R), CVA tenderness (L) - Neurological Neurological exam: Alert, Normal gait, Oriented X3 - Psychiatric Psychiatric exam: Anxious - Skin Skin exam: Normal color. negative: Abrasion Type of lesion: negative: abrasion Course Vital Signs 09/07/19 03:59 Temperature 97.7 F Pulse Rate [ 77 Left] Respiratory 16 Rate Blood Pressure 123/77 [Left Arm] Pulse Ox 99 - Reevaluation(s) Reevaluation #1: 09/07/19 04:23 Urinalysis was reviewed: Specific gravity is 10.15. No clinical evidence for dehydration on examination, pulse 70's and regular. Patient appears stable for discharge at this time with instructions for symptomatic care as directed. Disposition Disposition: Discharge Clinical Impression: Palpitations Diarrhea Qualifiers: Diarrhea type: unspecified type Qualified Code(s): R19.7 - Diarrhea, unspecified Disposition: Home, Self-Care Condition: (2) Stable Instructions: Acute Diarrhea (ED) Additional Instructions: Return to ED if your symptoms worsen or if you have any concerns. Stay hydrated at home with clear liquids. Follow-up with your family doctor in 3-5 days as directed. Forms: Patient Portal Access Time of Disposition: 04:25 Quality - Quality Measures Quality Measures: N/A - Blood Pressure Screening Does Patient Have Any of the Following: No Blood Pressure Classification: Pre-Hypertensive BP Reading Systolic Measurement: 123 Diastolic Measurement: 77 Screening for High Blood Pressure: < Pre-Hypertensive BP, F/U Documented > [[id number]] Pre-Hypertensive Follow-up Interventions: Referral to alternative/primary care provider.
[2019-09-07 04:16] LABS: URINE BILIRUBIN NEGATIVE (NEGATIVE); URINE BLOOD NEGATIVE (NEGATIVE); URINE COLOR YELLOW; URINE GLUCOSE (UA) NEGATIVE (NEGATIVE); URINE KETONE NEGATIVE (NEGATIVE); URINE LEUKOCYTE ESTERASE NEGATIVE (NEGATIVE); URINE NITRITE NEGATIVE (NEGATIVE); URINE PROTEIN NEGATIVE (NEGATIVE); URINE UROBILINOGEN 0.2 E.U./dL (0.20 - 1.00)
[2019-09-07 04:18] LABS: URINE APPEARANCE SL CLOUDY
== END 2019-09-07 04:37 | disposition home or self-care (01) ==
LOC: ER 03:50
DX: R00.2 Palpitations (principal); R19.7 Diarrhea, unspecified; R51 Headache; F17.210 Nicotine dependence, cigarettes, uncomplicated
CPT/HCPCS: 81003; 81025; 99282